=== PATIENT | male | born 1930 | race Caucasian/White ===

== ENCOUNTER → 2017-08-28 | Outpatient (CLI) | payer MEDICARE ==
[~2017-08-28] MED LIST: ASPI325; ASPI325 PO; CART1OPSO OD; DOXA4 PO; ERGO400 PO; FURO40 PO; FURO80 PO; INSR10I SUBQ; INSULANI SC; INSULANI SUBQ; LISI5 PO; METO2.5 PO; POTA10T PO; WARF2 PO
== END | disposition home or self-care (01) ==
LOC: PLD 08:25 → LAB SHORT 08:25
DX: L82.0 Inflamed seborrheic keratosis (principal); L29.8 Other pruritus
CPT/HCPCS: 88305

== ENCOUNTER → 2019-02-04 | Outpatient (CLI) | payer MEDICARE | END | disposition home or self-care (01) | LOC: LAB SHORT 10:12 → OLS 10:12 | DX: D22.5 Melanocytic nevi of trunk (principal) | CPT/HCPCS: 88305 ==